=== PATIENT | female | born 1955 | race Caucasian/White ===

== ENCOUNTER 2018-05-07 18:02 | Emergency (ER) | payer OTHER ==
[~2018-05-07] VITALS: Ht 175.2 cm; Wt 70.3 kg
--- NOTE | ~2018-05-07 | EKG ---
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
[2018-05-07] MEDS ORDERED: BENADRYL ALLERG25 M5 PO (18:18)
[2018-05-07] MEDS ORDERED: CITALOPRAM20 MG PO (18:18)
[2018-05-07] MEDS ORDERED: PREDNISONE20 M1 PO (18:19)
[2018-05-07] MEDS ORDERED: MUCINEX1200 M1 PO (18:19)
[2018-05-07] MEDS ORDERED: DILTIAZEM 24HR120 MG PO (18:20)
[2018-05-07] MEDS ORDERED: CALCIUM + VITA1 EAC2 PO (18:20)
[2018-05-07] MEDS ORDERED: ASPIRIN325 M2 PO (18:20)
== END 2018-05-07 18:30 ==
LOC: ED 18:02
DX: I21.3 ST elevation (STEMI) myocardial infarction of unspecified site (principal); I48.0 Paroxysmal atrial fibrillation; Z88.6 Allergy status to analgesic agent; Z79.899 Other long term (current) drug therapy; Z79.82 Long term (current) use of aspirin

== ENCOUNTER 2019-09-25 23:19 | Emergency (ER) | payer OTHER ==
[~2019-09-25] VITALS: Ht 175.2 cm; Wt 70.3 kg
[~2019-09-25 23:19] MED LIST: ASPIRIN325 M2 PO; BENADRYL ALLERG25 M5 PO; CALCIUM + VITA1 EAC2 PO; CITALOPRAM20 MG PO; DILTIAZEM 24HR120 MG PO; MUCINEX1200 M1 PO; PREDNISONE20 M1 PO
[2019-09-25 23:54] LABS: BASO % 0.3 % (0.0-1.0); EOS # 0.1 10*3/uL (0.0-0.4); EOS % 1.2 % (1.0-4.0); HEMOGLOBIN 10.2 g/dl (12.0-16.0); LYMPH # 1.5 10*3/uL (1.3-4.4); MEAN CELL VOLUME 87.8 fl (81.0-99.0); MEAN CORPUSCULAR HGB 27.1 pg (27.0-31.0); MEAN CORPUSCULAR HGB CONC 30.9 g/dl (33.0-37.0); MEAN PLATELET VOLUME 9.6 fl (9.6-12.3); MONO # 0.9 10*3/uL (0.1-1.0); MONO % 7.7 % (3.0-9.0); NEUT # 9.1 10*3/uL (2.3-7.9); NEUT % 77.5 % (47.0-73.0); PLATELET COUNT AUTOMATED 342 10*3/uL (130-400); RED BLOOD COUNT 3.76 10*6/uL (4.10-5.10); RED CELL DISTRI WIDTH 17.2 % (0-14.5); WHITE BLOOD COUNT 11.8 10*3/uL (4.8-10.8)
[2019-09-26 00:10] LABS: ACT PARTIAL THROMBO TIME 31.2 SECONDS (20.0-32.1); INTERNATIONAL NORM RATIO 1.6 (2.0-3.5)
[2019-09-26 00:11] LABS: ALBUMIN 3.4 gm/dl (3.1-4.5); CREATININE 1.3 mg/dL (0.55-1.02); POTASSIUM 3.4 mmol/L (3.5-5.1); TOTAL PROTEIN 8.1 gm/dL (6.4-8.2)
[2019-09-26 01:09] LABS: BILIRUBIN NEGATIVE (NEGATIVE); BLOOD 2+ (NEGATIVE); CLARITY CLEAR (CLEAR); COLOR STRAW (YELLOW); GLUCOSE NEGATIVE (NEGATIVE); KETONE TRACE (NEGATIVE); SPECIFIC GRAVITY 1.025 (1.005-1.030)
[2019-09-26 01:16] LABS: LEUKO ESTERASE TRACE (NEGATIVE); NITRITE NEGATIVE (NEGATIVE); UROBILINOGEN 0.2 E.U./dl (0.2-1.0)
[2019-09-26 01:20] LABS: BACTERIA TRACE; EPITHELIAL CELLS 0-2
== END 2019-09-26 07:26 | disposition short-term general hospital (02) ==
LOC: ED 23:19
PROVIDERS: Physician Assistant
DX: N13.2 Hydronephrosis with renal and ureteral calculous obstruction (principal); K52.9 Noninfective gastroenteritis and colitis, unspecified; I10 Essential (primary) hypertension; Z90.49 Acquired absence of other specified parts of digestive tract; Z88.8 Allergy status to other drugs, medicaments and biological substances; Z79.82 Long term (current) use of aspirin; Z79.899 Other long term (current) drug therapy

== ENCOUNTER → 2019-10-24 | Outpatient (CLI) | payer OTHER | END | disposition home or self-care (01) | LOC: NM 07:00 | DX: N13.30 Unspecified hydronephrosis (principal) ==

== ENCOUNTER → 2019-11-06 | Outpatient (CLI) | payer OTHER | END | disposition home or self-care (01) | LOC: US 15:00 | DX: N28.1 Cyst of kidney, acquired (principal); N13.30 Unspecified hydronephrosis ==

== ENCOUNTER 2020-02-04 12:15 | Inpatient (IN) | payer OTHER ==
[~2020-02-04] VITALS: Ht 172.7 cm; Wt 74.8 kg
[2020-02-04 12:30] VITALS: BP 124/72
[2020-02-04 13:03] LABS: HEMATOCRIT 39.4 % (37.0-47.0); MEAN CELL VOLUME 91.2 fl (81.0-99.0); MEAN CORPUSCULAR HGB 29.2 pg (27.0-31.0); MEAN PLATELET VOLUME 9.5 fl (9.6-12.3); PLATELET COUNT AUTOMATED 347 10*3/uL (130-400); RED BLOOD COUNT 4.32 10*6/uL (4.10-5.10); WHITE BLOOD COUNT 9.7 10*3/uL (4.8-10.8)
[2020-02-04 13:17] LABS: ALBUMIN 3.3 gm/dl (3.1-4.5); CREATININE 1.44 mg/dL (0.55-1.02); POTASSIUM 3.6 mmol/L (3.5-5.1); TOTAL PROTEIN 8.1 gm/dL (6.4-8.2)
[2020-02-04 13:22] LABS: PLATELET SUFFICIENCY NORMAL (NORMAL); TOTAL CELLS COUNTED 100 #CELLS
[2020-02-04 17:24] LABS: BILIRUBIN NEGATIVE (NEGATIVE); BLOOD NEGATIVE (NEGATIVE); CLARITY CLEAR (CLEAR); COLOR YELLOW (YELLOW); GLUCOSE NEGATIVE (NEGATIVE); KETONE TRACE (NEGATIVE); LEUKO ESTERASE NEGATIVE (NEGATIVE); NITRITE NEGATIVE (NEGATIVE); SPECIFIC GRAVITY 1.025 (1.005-1.030); UROBILINOGEN 0.2 E.U./dl (0.2-1.0)
[2020-02-04 17:31] LABS: BACTERIA 2+; HYALINE CAST TNTC; MUCOUS TRACE
[2020-02-04] MEDS ORDERED: METRONIDAZOLE250 M1 PO (18:22)
[2020-02-04] MEDS ORDERED: FAMOTIDINE20 M1 PO (18:22)
[2020-02-04] MEDS ORDERED: WARFARIN SODIUM6 MG PO (18:23)
--- NOTE | 2020-02-04 18:30 | NUR ---
DR ROBLERO MADE AWARE OF NEW CONSULT
[2020-02-04 18:52] LABS: ACT PARTIAL THROMBO TIME 31.1 SECONDS (20.0-32.1); INTERNATIONAL NORM RATIO 1.4 (2.0-3.5)
[2020-02-04 20:15] VITALS: BP 108/61
--- NOTE | 2020-02-04 20:15 | NUR ---
Time: 2014 A 64 year old female admitted under services of SUMAYA SCHMITZ DO. Chief complaint: abdominal pain. MARCUS EMERSON
--- NOTE | 2020-02-04 20:15 | NUR ---
PATIENTS ADMISSION DONE IN ER PATIENT IS TO BE TRANSFERRED TO [facility] WHERE PATIENTS GI DOCTOR IS LOCATED.
[2020-02-04] MEDS ORDERED: ASPIRIN81 M1 PO (20:26)
[2020-02-04] MEDS ORDERED: PREDNISONE5 MG PO (20:29)
[2020-02-04] MEDS ORDERED: Coumadin3 MG PO (20:30)
--- NOTE | 2020-02-04 20:30 | NUR ---
PATIENT STATES AT THIS TIME THAT HER PAIN IS UNDER CONTROL
[2020-02-04] MEDS ORDERED: Coumadin5 MG PO (20:31)
--- NOTE | 2020-02-04 21:00 | NUR ---
ATTEMPTED TO CALL NURSE TO NURSE REPORT
--- NOTE | 2020-02-04 21:00 | NUR ---
SPOKE WITH DR. WATERMAN AT THIS TIME PERTAINING TO GIVING THE PATIENT ANOTHER DOSE OF DILAUDID. PATIENT STATES SHE IS STILL FEELING THE EFFECTS OF THE FIRST DOSE OF DILAUDID BUT DR. WATERMAN STATED TO MAKE SURE SHE HAS ANOTHER DOSE OF DILAUDID BEFORE SHE LEAVES FOR [facility]. PATIENT STATED SHE WOULD LIKE TO ONLY HAVE HALF THE DOSE OF BEFORE SHE DOESN'T WANT TO BE KNOCKED OUT. DR. WATERMAN STATED THIS WAS FINE.
--- NOTE | 2020-02-04 21:10 | NUR ---
OK PER DR. WATERMAN TO ENTER THE PATIENTS DISCHARGE ORDER.
--- NOTE | 2020-02-04 21:20 | NUR ---
ATTEMPTED TO CALL NURSE TO NURSE REPORT
--- NOTE | 2020-02-04 21:34 | NUR ---
Transfer Out, from the Emergency Department - Stable This patient, POLY AVILA 64, 57, [id number], [id number], was examined by the Emergency Department physician, TIGRE Burkett and efforts were made to stabilize the patient. The patient's condition is stable. The reason for transfer is need higher level of care . The Emergency physician has made the decision to transfer the patient out. Refer to the ED physician's dictation for the family/back-up physician notified. The attending physician has spoken to the accepting physician at the receiving facility, . Refer to the ED physician's dictation. The receiving facility has space and qualified personnel to care for the patient, and has agreed to accept the patient. Proper equipment and trained personnel have been arranged. The mode of transport is . The agency is . The Emergency physician has spoken to the transport staff re: patient's condition and needs during transport. Copies of the medical record have been forwarded to the receiving facility, including: - Emergency Department record: - name, address, hospital number, age, next of kin - presenting problem - history of injury, past medical history - treatment, medications & route, fluid type & volume - lab and xray findings, films - physical findings - vitals signs -- prehospital, emergency, pre-transfer - preliminary diagnosis - status/condition - emergency medical services record - consent for transfer - authorization for record release - name of any involed physicians -- responsive or not - name and address of referring physician - name of contact physician at receiving facility - name of accepting physician at receiving facility Nursing report has been given to . Valuables include . and were given to . GEORGETTE BURNETTE
--- NOTE | 2020-02-04 22:17 | NUR ---
ATTEMPTED TO CALL REPORT TO [facility] WITH NUMBER [phone] SEVERAL TIMES WITH NO ANSWER. ATTEMPTED TO [facility] DIRECT AND WAS TRANSFERRED TO NURSES STATION FOR ROOM 2028 AGAIN NO ANSWER.
== END 2020-02-04 21:10 | disposition short-term general hospital (02) | DRG 386 ==
LOC: ED 12:15 → EDHOLD 17:50 → 5E 18:11
PROVIDERS: Internal Medicine; Nurse Practitioner Family; ADMIT Internal Medicine
DX: K51.918 Ulcerative colitis, unspecified with other complication (principal); K56.7 Ileus, unspecified; E87.2 Acidosis; I25.10 Atherosclerotic heart disease of native coronary artery without angina pectoris; R79.89 Other specified abnormal findings of blood chemistry; E66.3 Overweight; Z68.28 Body mass index [BMI] 28.0-28.9, adult; I25.2 Old myocardial infarction; Z90.49 Acquired absence of other specified parts of digestive tract; Z90.710 Acquired absence of both cervix and uterus; Z96.659 Presence of unspecified artificial knee joint; Z95.2 Presence of prosthetic heart valve; Z79.01 Long term (current) use of anticoagulants; Z79.82 Long term (current) use of aspirin; Z79.899 Other long term (current) drug therapy; Z88.5 Allergy status to narcotic agent; Z88.8 Allergy status to other drugs, medicaments and biological substances

== ENCOUNTER 2020-02-17 18:15 | Emergency (ER) | payer OTHER ==
[~2020-02-17] VITALS: Ht 172.7 cm; Wt 73.9 kg
[~2020-02-17 18:15] MED LIST changes: +ASPIRIN81 M1 PO; +Coumadin3 MG PO; +Coumadin5 MG PO; +FAMOTIDINE20 M1 PO; +METRONIDAZOLE250 M1 PO; +PREDNISONE5 MG PO; +WARFARIN SODIUM6 MG PO
[2020-02-17 19:11] LABS: BASO # 0.1 10*3/uL (0.0-0.1); BASO % 0.6 % (0.0-1.0); EOS # 0.4 10*3/uL (0.0-0.4); EOS % 4.7 % (1.0-4.0); HEMATOCRIT 28.1 % (37.0-47.0); LYMPH # 2.3 10*3/uL (1.3-4.4); LYMPH % 28.5 % (27.0-41.0); MEAN CELL VOLUME 93.4 fl (81.0-99.0); MEAN CORPUSCULAR HGB 28.9 pg (27.0-31.0); MEAN PLATELET VOLUME 9.7 fl (9.6-12.3); MONO # 0.9 10*3/uL (0.1-1.0); MONO % 10.5 % (3.0-9.0); NEUT # 4.4 10*3/uL (2.3-7.9); NEUT % 55.2 % (47.0-73.0); PLATELET COUNT AUTOMATED 407 10*3/uL (130-400); RED BLOOD COUNT 3.01 10*6/uL (4.10-5.10); RED CELL DISTRI WIDTH 16.6 % (0-14.5); WHITE BLOOD COUNT 8.1 10*3/uL (4.8-10.8)
[2020-02-17 19:22] LABS: ACT PARTIAL THROMBO TIME 40.4 SECONDS (20.0-32.1); INTERNATIONAL NORM RATIO 1.4 (2.0-3.5)
[2020-02-17 19:28] LABS: ALBUMIN 2.3 gm/dl (3.1-4.5); CREATININE 1.48 mg/dL (0.55-1.02); POTASSIUM 3.3 mmol/L (3.5-5.1); TOTAL PROTEIN 6.9 gm/dL (6.4-8.2)
== END 2020-02-18 01:36 | disposition home or self-care (01) ==
LOC: ED 18:15
PROVIDERS: Nurse Practitioner Family
DX: L76.22 Postprocedural hemorrhage of skin and subcutaneous tissue following other procedure (principal); I10 Essential (primary) hypertension; M19.90 Unspecified osteoarthritis, unspecified site; Z79.899 Other long term (current) drug therapy; Z79.01 Long term (current) use of anticoagulants